=== PATIENT | female | born 1935 | race Caucasian/White ===

== ENCOUNTER 2018-05-30 08:28 | Outpatient (CLI) | payer MEDICARE, OTHER, SELFPAY ==
--- NOTE | 2018-05-30 06:00 | DI.RAD_ITS ---
SYMPTOMS/DIAGNOSIS: LUMBAR RADICULOPATHY PAIN CLINIC LUMBAR SPINE: Fluoroscopy Time: 17.5 sec Fluoroscopy was utilized by Dr. Allison during the performance of a lumbar epidural injection. Please refer to the procedure report for complete details.
[2018-05-30 08:32] VITALS: BP 131/75; PULSE 80; RESP 18; TEMP 35.6; O2SAT 98
[2018-05-30] MEDS: Dexamethasone Sod. Phos./Pres-Free 10 MG/ML VIAL IJ (09:03)
[2018-05-30] MEDS: Omnipaque 240 MG/ML 50 ML BTL IJ (09:03)
[2018-05-30 09:04] VITALS: BP 164/74; PULSE 98; RESP 19; O2SAT 99
--- NOTE | 2018-05-30 09:05 | PDOC.PAIN ---
Pain Clinic Procedure Note Current Active Problems Problem Status Onset Lumbar radiculopathy Acute Lumbar Epidural Steroid Injection Procedure Note COMMENTS:I did review the 05/17/18 evaluation by Kia Blair APRN. MICHAEL GUAJARDO has been referred to the [facility] for lumbar epidural steroid injection. The patient was greeted by the nurse who verified patients name and . Patient was then taken to the fluoroscopy suite. The patient was interviewed and the medial record reviewed. There were no medical, pharmacologic, radiographic, or other structural contraindications to attempting fluoroscopically guided lumbar epidural steroid injection. Risks and expected side effects as well as potential benefits of the procedure were reviewed and voiced concerns expressed. The patient consent form was signed and witnessed. Standard patient time-out procedure was performed. The patient was placed in the prone position on the fluoroscopy table and automated blood pressure cuff and pulse oximeter applied. The skin entry point for entering/approaching the epidural space at L5-S1 on the right and marked. Following thorough chlorhexadine preparation of the skin and draping and 1% lidocaine infiltration of the skin entry point and subcutaneous tissues, a 18 gauge 5 Touhy needle was placed under fluoroscopic guidance and with loss of resistance technique into the epidural space. Needle tip placement and depth were aided and confirmed by fluoroscopy. There was no paresthesia or return of blood or CSF through the needle. 1 cc's of Omnipaque 240 was injected with clear epidural spread confirmed with fluoroscopy. 15 mg of Dexamethasone was injected. There was not any unusual discomfort expressed by MICHAEL GUAJARDO. Patient's vital signs were stable throughout the procedure and were as recorded in nursing records. Follow up plans and appointments were discussed with patient. Post procedure instruction was given as documented in nursing records and having met discharge criteria and was discharged from the [facility]. COMMENTS: This procedure can be completed up to 3 times per 12 months if it is found to be helpful. Dennis Allison DO, MPH [facility] - Subspecialty Board Certification in Pain Medicine
== END 2018-05-30 08:48 ==
PROVIDERS: PCP Nurse Practitioner; Visit Provider Preventive Medicine Occupational Medicine
DX: M54.16 Radiculopathy, lumbar region (principal)
CPT/HCPCS: 62323; 72100; Q9967

== ENCOUNTER 2018-08-08 11:46 | Outpatient (CLI) | payer MEDICARE, OTHER, SELFPAY ==
[2018-08-08 11:51] VITALS: BP 152/73; PULSE 85; RESP 16; TEMP 36.1; O2SAT 99
[2018-08-08] MEDS: Omnipaque 240 MG/ML 50 ML BTL IJ (12:19)
[2018-08-08] MEDS: methylPREDNISolone ACETATE 80 MG/ML VIAL IM (12:20)
--- NOTE | 2018-08-08 12:20 | PDOC.PAIN ---
Pain Clinic Procedure Note Current Active Problems Problem Status Onset Lumbar radiculopathy Acute Lumbar Epidural Steroid Injection Procedure Note COMMENTS:She did great with her last LESI 2 months ago DX: Lumbar radiculopathy MICHAEL GUAJARDO has been referred to the [facility] for lumbar epidural steroid injection. The patient was greeted by the nurse who verified patients name and . Patient was then taken to the fluoroscopy suite. The patient was interviewed and the medial record reviewed. There were no medical, pharmacologic, radiographic, or other structural contraindications to attempting fluoroscopically guided lumbar epidural steroid injection. Risks and expected side effects as well as potential benefits of the procedure were reviewed and voiced concerns expressed. The patient consent form was signed and witnessed. Standard patient time-out procedure was performed. The patient was placed in the prone position on the fluoroscopy table and automated blood pressure cuff and pulse oximeter applied. The skin entry point for entering/approaching the epidural space at L5-S1 and marked. Following thorough chlorhexadine preparation of the skin and draping and 1% lidocaine infiltration of the skin entry point and subcutaneous tissues, a 18 gauge Touhy needle was placed under fluoroscopic guidance and with loss of resistance technique into the epidural space. Needle tip placement and depth were aided and confirmed by fluoroscopy. There was no paresthesia or return of blood or CSF through the needle. 1 cc's of Omnipaque 240 was injected with clear epidural spread confirmed with fluoroscopy. 80mg depomedrol was injected. The needle was flushed with 1 cc of 1% Lidocaine. There was not any unusual discomfort expressed by MICHAEL GUAJARDO. Patient's vital signs were stable throughout the procedure and were as recorded in nursing records. Follow up plans and appointments were discussed with patient. Post procedure instruction was given as documented in nursing records and having met discharge criteria and was discharged from the [facility]. COMMENTS: This procedure can be completed up to 3 times per 12 months if it is found to be helpful.
[2018-08-08 12:21] VITALS: BP 129/58; PULSE 92; RESP 18; O2SAT 99
--- NOTE | 2018-08-08 12:34 | DI.RAD_ITS ---
SYMPTOMS/DIAGNOSIS: LUMBAR RADICULOPATHY, LUMBAR EPIDURAL STEROID INJECTION PAIN CLINIC: Fluoroscopy Time: 17 sec 12.99 mGy Images submitted from the pain clinic demonstrate positioning of a needle over the left paramedian position at the level of L 5 adjacent to the spinous process in connection with a lumbar epidural steroid injection carried out by Dr. Allison. Please see the procedure report for further information.
== END 2018-08-08 12:06 ==
PROVIDERS: PCP Nurse Practitioner; Visit Provider Preventive Medicine Occupational Medicine
DX: M54.16 Radiculopathy, lumbar region (principal)
CPT/HCPCS: 62323; 72100; J1040; Q9967